=== PATIENT | female | born 1995 | race Caucasian/White ===

== ENCOUNTER 2016-05-06 18:44 | Emergency (ER) | payer MEDICAID ==
[~2016-05-06] VITALS: Ht 154.9 cm; Wt 47.6 kg
[2016-05-06] MEDS ORDERED: PREDNISONE20 MG ORAL (20:28)
[2016-05-06] MEDS ORDERED: IBUPROFEN600 MG ORAL (20:28)
[2016-05-06] MEDS ORDERED: ROBITUSSIN COU118 M4 PO (20:28)
[2016-05-06 20:42] VITALS: BP 112/74
--- NOTE | 2016-05-06 22:53 | Emergency Room Report ---
History of Present Illness General Chief Complaint: Fever Source: Patient Present Illness HPI The patient is a 21-year-old female visiting for 2 days of fever and dry cough. The patient has taken temperature at home with a max of 103F. the patient has been using Tylenol and Motrin at home which does help with the fever. The patient denies any sick contacts or recent travel. The patient denies N, V, abd pain, hemoptysis, SOB Allergies: Coded Allergies: No Known Allergies (Unverified , 05/06/16) Patient History Past Medical History: see triage record Pertinent Family History: none Last Menstrual Period: 04/27/2016 Now: No : 0 Para: 0 Reviewed Nursing Documentation: PMH: Agreed, PSxH: Agreed Nursing Documentation-PMH Past Medical History: No Stated History Review of Systems All Other Systems: negative except mentioned in HPI Physical Exam Vital Signs Date Time Temp Pulse Resp B/P Pulse Ox O2 Delivery O2 Flow Rate FiO2 05/06/16 18:52 99.7 136 16 122/88 96 Room Air Sp02 EP Interpretation: reviewed, normal General Appearance: no apparent distress, alert, GCS 15, non-toxic Head: normocephalic, atraumatic Eyes: bilateral eye PERRL, bilateral eye normal inspection ENT: hearing grossly normal, normal pharynx, no angioedema, normal voice, TMs + canals normal, uvula midline, moist mucus membranes Neck: full range of motion, supple/symm/no masses Respiratory: chest non-tender, lungs clear, normal breath sounds, no wheezing, speaking full sentences Cardiovascular #1: regular rate, rhythm, no edema Gastrointestinal: normal bowel sounds, non tender, soft, non-distended, no guarding, no rebound Genitourinary: normal inspection, no CVA tenderness Musculoskeletal: back normal, gait/station normal, normal range of motion, non- tender Neurologic: alert, oriented x3, responsive, motor strength/tone normal, sensory intact, speech normal Psychiatric: judgement/insight normal, memory normal, mood/affect normal, no suicidal/homicidal ideation Skin: normal color, no rash, warm/dry, palpation normal, well hydrated Lymphatic: adenopathy - Cervical Medical Decision Making PA Attestation Dr. ag is my supervising physician. Patient management was discussed with my supervising physician Diagnostic Impression: Primary Impression: Viral syndrome ER Course The patient is a 21-year-old female visiting for 2 days of fever and dry cough. Differential diagnosis include but not limited to pharyngitis, sinusitis, AOM, bronchitis, PNA, influenza PE: Afebrile but tachycardic. No apparent distress. A&Ox3 PERRL. EOMI. HEENT unremarkable. Normal mentation. RRR. No MRG Lungs CTA bilat Abdomen: Normal appearance. Non distended. No ecchymosis. Normal BS. Non TTP. No McBurney point tenderness. No guarding. Skin is warm and dry, no rashes. Flu swab negative. Pt will be ND'ed and will rest. Prescriptions for motrin, prednisone, and cough medication given. The patient will followup with primary care physician Microbiology Date/Time Source Procedure Growth Status 05/06/16 19:49 Nasopharynx Influenza Types A,B Antigen (KATHERINE) - Final Complete Lab Results Impression Negative influenza Last Vital Signs Date Time Temp Pulse Resp B/P Pulse Ox O2 Delivery O2 Flow Rate FiO2 05/06/16 20:42 99.6 05/06/16 20:42 124 16 112/74 94 Room Air Status: improved Disposition: HOME, SELF-CARE Condition: Improved Scripts Guaifenesin/Dextromethorphan (Robitussin Cough-Chest Dm Liq) 118 Ml Liquid 10 ML PO Q4HR, #118 ML Prov: TERZIAN,DANIEL P.A. 05/06/16 Prednisone* (PREDNISONE*) 20 Mg Tablet 20 MG ORAL DAILY, #5 TAB 0 Refills Prov: TERZIAN,DANIEL P.A. 05/06/16 Ibuprofen* (MOTRIN*) 600 Mg Tablet 600 MG ORAL Q8H Y for For Pain, #30 TAB 0 Refills Prov: TERZIAN,DANIEL P.A. 05/06/16 Referrals: NOT CHOSEN [facility]/MD,REFERRING (PCP) Patient Instructions: Fever, Adult, Viral Respiratory Infection Additional Instructions: I discussed my findings with the patient. All questions and concerns have been answered. Treatment and medication compliance have been addressed. I advised the patient that they need to follow up with PMD in 3-5 days. Return to ED if pain remains or worsens, cough worsens or remains, you notice blood in your sputum, you notice wheezing, you experience a fever, or if needed for any reason. Patient verbalized understanding of discharge instructions. DANIEL ALLEN May 06, 2016 22:53
== END 2016-05-06 20:45 | disposition home or self-care (01) ==
LOC: EMR 19:30
DX: B34.9 Viral infection, unspecified (principal)
CPT/HCPCS: 86710; 99282